=== PATIENT | female | born 2000 | race Caucasian/White ===

== ENCOUNTER 2021-03-30 22:35 | Emergency (ER) | payer OTHER ==
[~2021-03-30] VITALS: Ht 167.6 cm; Wt 59.0 kg
--- NOTE | 2021-03-30 22:48 | NUR ---
Dr. Kwon at bedside for MSE.
[2021-03-30] MEDS ORDERED: IBUPROFEN 600 MG TABLET ONE (22:58)
[2021-03-30] MEDS ORDERED: IBUPROFEN 600 MG TABLET PO ONE (23:00)
[2021-03-30 23:35] VITALS: BP 125/73
--- NOTE | 2021-03-30 23:35 | NUR ---
Patient discharged to home in stable condition. Written and verbal after care instructions given. Patient verbalizes understanding of instructions. Stressed follow up or return to ER for worsening s/s. Patient out of ER with steady gait, no acute signs of distress, VSS, all belongings taken, provided with a work excuse form.
== END 2021-03-30 23:36 | disposition home or self-care (01) ==
LOC: ER 22:39
DX: S20.229A Contusion of unspecified back wall of thorax, initial encounter (principal); W22.8XXA Striking against or struck by other objects, initial encounter; Y92.511 Restaurant or cafe as the place of occurrence of the external cause; Y99.0 Civilian activity done for income or pay
CPT/HCPCS: 72072; A4663